=== PATIENT | female | born 1935 | race Caucasian/White ===

== ENCOUNTER 2016-06-17 09:45 | Outpatient (CLI) | payer MEDICARE, OTHER ==
[2015-09-24 00:15] VITALS: BP 123/68
[2016-06-17 10:23] LABS: BASOPHILS % 0.6 (0.0-1.5); EOSINOPHILS % 3.2 % (0.0-6.8); LYMPHOCYTES # 1.8 # k/uL (0.6-4.0); MEAN CORPUSCULAR HEMOGLOBIN 34.4 pg (28.0-34.0); MONOCYTES # 0.5 # k/uL (0.0-0.9); MONOCYTES % 7.7 % (0.0-11.0); NEUTROPHILS # 3.9 # k/uL (1.4-7.7)
[2016-06-17 11:00] LABS: eGFR (African) > 60; eGFR (Non-African) > 60
--- NOTE | 2016-06-17 12:10 | OP Clinic Progress Note ---
REASON FOR VISIT: Hailey Elise returns for follow up on her seropositive rheumatoid arthritis of multiple joints. She is not doing well. She continues to have between 30 and 60 minutes of morning stiffness, loss of use of her hands with swelling over her knuckles, both right and left. She also has pain in her feet, ankles, and knees, which is limiting her ability to walk. She is on oxycodone for chronic intractable lower back pain and that is doing well, but she is starting to use her oxycodone for her foot pain as well. She has a history of osteoporosis and recent bilateral foot fractures. She is presently on Prolia. She has had no new medical problems. As recalled in the past, she has failed methotrexate, as well as Enbrel, Humira , and now Simponi. PAST MEDICAL HISTORY: 1. DVT. 2. Hypertension. 3. Gastric reflux disease. 4. Peripheral neuropathy. 5. Pulmonary embolization. 6. Thrombophlebitis. 7. Chronic anticoagulation. 8. Chronic immunosuppression. 9. Osteoporosis with history of fracture. 10. Chronic intractable back pain. SOCIAL HISTORY: She has moved to [place], [place]. Her appointment with her nursing home assistant administrator is not until 3 months from now. PRESENT MEDICATIONS: 1. Oxycodone. 2. Simponi. 3. Prednisone 5 mg in the morning. 4. Methotrexate 8 tablets weekly. 5. Prolia 60 mg every 6 months. REVIEW OF SYSTEMS: No fevers, chills, sweats, chest pain, shortness of breath, cough, wheezing, nausea, vomiting, or diarrhea. PHYSICAL EXAMINATION: VITAL SIGNS: T: 97, R: 18, heart rate of 56, BP: 150/81. Weight: 197. HEENT: Sclerae are anicteric. Conjunctivae are pink. No stomatitis or glossitis. LUNGS: Clear bilaterally with no crackles or wheezing. HEART: Regular rhythm. ABDOMEN: Soft and nontender. VASCULAR: No edema or cyanosis. PERIPHERAL JOINTS: DIPs are unremarkable. PIPs are tender at #2, #3, and #4 bilaterally. She has tenderness and swelling of MCP #2 and #3 on the right and #2 on the left. Left wrist is slightly tender and she cannot make a full fist, nor fully extend her fingers. Right wrist, elbow, and shoulder, of course , are unremarkable. Knees, ankles, and feet are tender. IMPRESSION: Seropositive rheumatoid arthritis failing multiple agents. PLAN: Probably time to change to a different class. I have given her information on her Orencia, Actemra, and Rituxan but I will let her new nursing home assistant administrator decide. I am allowing her to bump up her prednisone to 5 mg twice a day as needed until her appointment. We will check her labs for disease activity and drug toxicity today. Thank you very much, MOLLY
== END 2016-06-17 09:46 ==
LOC: RHEU 09:45
PROVIDERS: ATTEND Internal Medicine
DX: M05.79 Rheumatoid arthritis with rheumatoid factor of multiple sites without organ or systems involvement (principal); Z51.81 Encounter for therapeutic drug level monitoring; Z79.899 Other long term (current) drug therapy
CPT/HCPCS: 36415; 80053; 85025; 85610; 85651; 86140; 99214